=== PATIENT | male | born 1965 | race Caucasian/White ===

== ENCOUNTER 2024-03-26 11:34 | Emergency (ER) | payer MEDICAID, SELFPAY ==
--- NOTE | ~2024-03-26 | XR_ITS ---
Clinical Indication: Upper respiratory infection PA and lateral views of the chest: Comparison: None Findings: The lungs are clear, without evidence of focal consolidation or pleural effusion. Cardiome diastinal silhouette is within normal limits. Bones and soft tissues are unremarkable. Impression: Normal chest. Reviewed, dictated and finalized at location . Impression: Normal chest.
[2024-03-26 11:53] VITALS: BP 146/75; PULSE 92; RESP 18; TEMP 36.3; O2SAT 91
[2024-03-26 13:35] LABS: Influenza A QL RT-PCR Negative (Negative); Influenza B QL RT-PCR Negative (Negative); RSV RNA, RT-PCR Negative (Negative); SARS-CoV-2 RNA PCR Negative (Negative)
--- NOTE | 2024-03-26 14:12 | ED.URI ---
HPI - URI/Sore Throat General Chief Complaint: Upper Respiratory Infection Stated Complaint: cough/congestion Time Seen by Provider: 03/26/24 14:03 History of Present Illness HPI Narrative: 58-year-old male with history of HLD, HTN, T2DM presents to the emergency department for sinus congestion for 3 weeks. Patient reports sinus congestion and rhinorrhea, full ears and a mild intermittent cough. States he contacted his PCP, Dr. Bell, and was prescribed amoxicillin on 03/21. States he has been taking this as directed without improvement which prompted him to come to the ED today. He has an appointment with his PCP in 6 days. Denies chest congestion, chest pain, shortness of breath, otalgia, sore throat, abdominal pain, N/ V/D. Review of Systems Review of Systems: All systems reviewed & are unremarkable except as noted in HPI and below Exam Narrative: GENERAL: Well-appearing, well-nourished, and in no acute distress. HEAD: Normocephalic, atraumatic. EYES: PERRLA and EOMI. ENT: Nares congested. Mucous membranes moist. Bilateral TM effusions, TMs are gale and without erythema. posterior pharynx erythema or edema, no tonsillar hypertrophy or exudates. Uvula midline. NECK: Supple. CHEST: Clear to auscultation. No respiratory distress. HEART: Regular rate and rhythm. No murmur heard. Normal peripheral pulses. ABDOMEN: Soft, nontender, nondistended, normal active bowel sounds. EXTREMITIES: Normal range of motion. No edema. SKIN: Warm, dry, no rash. NEURO: No focal deficits. Alert and oriented x3 Course Vital Signs Vital signs: Vital Signs Temperature 97.3 F L 03/26/24 11:53 Pulse Rate 92 03/26/24 11:53 Respiratory Rate 18 03/26/24 11:53 Blood Pressure 146/75 H 03/26/24 11:53 Pulse Oximetry 91 03/26/24 11:53 Temperature 97.3 F L 03/26/24 11:53 Pulse Rate 92 03/26/24 11:53 Respiratory Rate 18 03/26/24 11:53 Blood Pressure 146/75 H 03/26/24 11:53 Pulse Oximetry 91 03/26/24 11:53 MDM - URI/Sore Throat MDM Narrative Medical decision making narrative: 58-year-old male presents to emergency department for ear fullness, sinus congestion and intermittent cough for 3 weeks. vital stable. He is afebrile and nontoxic appearing. Exam is significant for the above. COVID, flu RSV are negative. Chest x-ray shows no acute cardiopulmonary abnormality. Symptoms most consistent with sinusitis. Given duration of sx, I do feel he would benefit from antibiotics. He has been taking amoxicillin prescribed by his PCP without improvement. Advised him to discontinue this, will prescribe flonase and Augmentin given risk factors and have him f/u closely with his PCP. Strict ED return precautions discussed. He is agreeable with the plan and verbalized understanding. D/c in stable condition. Lab Data Labs: Lab Results 03/26/24 Range/Units 12:51 Influenza A (RT-PCR) Negative (Negative) Influenza B (RT-PCR) Negative (Negative) RSV (RT-PCR) Negative (Negative) SARS-CoV-2 RNA (RT-PCR) Negative (Negative) Discharge Plan Discharge Clinical Impression: Sinusitis Qualifiers: Sinusitis location: unspecified location Chronicity: acute Recurrence: not specified as recurrent Qualified Code(s): J01.90 - Acute sinusitis, unspecified Acute serous otitis media Qualifiers: Laterality: bilateral Recurrence: not specified as recurrent Qualified Code(s): H65.03 - Acute serous otitis media, bilateral Patient Disposition: Home, Self-Care Condition: Stable Instructions: Antibiotic Form, Sinusitis (ED) Additional Instructions: you were evaluated in the emergency department for the sinus congestion and cough. Workup here shows a negative strep, COVID and RSV test. Chest x-ray shows no pneumonia. Her symptoms are consistent with a sinus infection. This may be bacterial or viral as discussed. This also may be secondary to allergies. Please stop taking the antibiotic her primary ca
[2024-03-26] MEDS: Please add drug allergy info to patient profile. 1 EACH XX (15:26)
[2024-03-26] MEDS: AMOXICILLIN/CLAVULANATE K 875-125 MG TAB 1 TABLET PO (15:26)
[2024-03-26 15:30] VITALS: BP 136/74; PULSE 72; RESP 16; TEMP 36.6; O2SAT 98
== END 2024-03-26 15:30 | disposition home or self-care (01) ==
LOC: ANHED 15:02
PROVIDERS: Emergency Medicine; Emergency Provider Physician Assistant; PCP Internal Medicine
DX: H65.03 Acute serous otitis media, bilateral (principal); J01.90 Acute sinusitis, unspecified; Z20.822 Contact with and (suspected) exposure to COVID-19; I10 Essential (primary) hypertension; E78.5 Hyperlipidemia, unspecified; E11.9 Type 2 diabetes mellitus without complications
CPT/HCPCS: 71046; 87637; 99283; A9270